=== PATIENT | male | born 1995 | race Caucasian/White ===

== ENCOUNTER 2018-11-28 03:38 | Emergency (ER) | payer SELFPAY ==
[~2018-11-28] VITALS: Ht 162.6 cm; Wt 54.4 kg
--- NOTE | 2018-11-28 03:38 | NUR ---
Patient BIB [facility] for pre-booking medical screening exam, transferred to chair E. RN evaluating patient at bedside.
[2018-11-28 03:40] VITALS: BP 118/85
--- NOTE | 2018-11-28 03:45 | NUR ---
BIB [facility] FOR PREBOOK S/P TC ETOH. OBVIOUS ODOR OF ETOH PRESENT. NO OBVIOUS INJURY OR DEFORMITY NOTED. ER MD DE LA GARZA EVALUATING PT AT THIS TIME.
--- NOTE | 2018-11-28 04:06 | NUR ---
Patient discharged with v/s stable. Written and verbal after care instructions given and explained. Patient verbalized understanding. Ambulatory with in custody. All questions addressed prior to discharge. Advised to follow up with PMD.
--- NOTE | 2018-11-28 04:06 | NUR ---
PATIENT BIB [facility]. PATIENT EXAMINED BY DR. DE LA GARZA. PATIENT MEDICALLY CLEARED AND RELEASED IN CUSTODY IN STABLE CONDITION. ORIGINAL PRE-BOOK FORM GIVEN TO OFFICER MAAME.
== END 2018-11-28 04:06 ==
LOC: MED 03:38
DX: Z02.89 Encounter for other administrative examinations (principal); S16.1XXA Strain of muscle, fascia and tendon at neck level, initial encounter; V89.2XXA Person injured in unspecified motor-vehicle accident, traffic, initial encounter; Y93.89 Activity, other specified; Y92.410 Unspecified street and highway as the place of occurrence of the external cause; Y99.8 Other external cause status
CPT/HCPCS: 72040; 99283